=== PATIENT | female | born 1995 | race American Indian/Alaskan Native ===

== ENCOUNTER 2020-07-01 09:02 | Outpatient (CLI) | payer MEDICAID ==
[2020-07-01 09:35] VITALS: BP 119/69
== END 2020-07-01 11:42 | disposition home or self-care (01) ==
LOC: TRG 09:02 → APU 09:03 → TRG 11:42
PROVIDERS: ATTEND Obstetrics & Gynecology
DX: O62.4 Hypertonic, incoordinate, and prolonged uterine contractions (principal); Z3A.40 40 weeks gestation of pregnancy
CPT/HCPCS: 59025

== ENCOUNTER 2020-07-11 09:31 | Inpatient (IN) | payer MEDICAID ==
[2020-07-11] MEDS ORDERED: LIDOCAINE (2%) 20 MG/1 ML VIAL 20 ML MDV INFILTRATI NR (09:50)
[2020-07-11] MEDS ORDERED: TERBUTALINE 1 MG/1 ML INJ SUB-Q PRN (09:50)
[2020-07-11] MEDS ORDERED: ePHEDrine SULFATE 50 MG/1 ML INJ IV PRN ×2 (09:50→15:04)
[2020-07-11] MEDS ORDERED: OXYTOCIN DRIP 30 UNITS/500 ML BAG IV SCH ×4 (10:00→18:00)
[2020-07-11] MEDS ORDERED: fentaNYL 100 MCG/2 ML INJ IV PRN (10:00)
--- NOTE | 2020-07-11 10:10 | History and Physical Report ---
History of Present Illness Date of examination: 07/11/20 Date of admission: 07/11/2020 Chief complaint: Leaking of water since 09:00. History of present illness: 25 year old presents with complaint of contractions since last night and leaking of clear fluid from vagina since 09:00 this morning. Patient received care at [facility] and records are available. LMP 09/02/2019. EDC 07/09/2020. significant for the following: anemia (supplemented with iron), possible history of shoulder dystocia with last delivery (pt. 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 labs are as follows: O+, antibody screen negative, rubella immune, hepatitis B surface antigen negative, RPR nonreactive, HIV negative, varicella immune, HSV 2 positive, pap LSIL, gonorrhea negative, chlamydia negative, trichomonas negative, MSAFP negative, early 1 hour sugar test 140; repeat 1 hour sugar test 122, GBS negative. Past History Past Medical History: other (anemia, HSV 2 positive, LSIL pap smear, vitamin D deficiency) Past Surgical History: no surgical history [employer] History: abnormal PAP smear, herpes (patient denies lesions or prodromal symptoms; taking Valtrex for suppression). denies: chlamydia, gonorrhea, hepatitis B, hepatitis C, HIV, syphilis, trichomonas Family/Genetic History: none Social history: single, full code. denies: smoking, alcohol abuse, prescription drug abuse, IV drug use - Obstetrical History Expected Date of Delivery: 07/09/20 Actual Gestation: 40 Week(s) 2 Day(s) : 2 Para: 1 Hx # Term Pregnancies: 1 Number of Pregnancies: 0 Spontaneous Abortions: 0 Induced : 0 Number of Living Children: 1 Medications and Allergies Allergies Allergy/AdvReac Type Severity Reaction Status Date / Time No Known Allergies Allergy Unverified 07/01/20 09:38 Active Meds: Active Medications Ephedrine Sulfate (Ephedrine Sulfate 50 Mg/1 Ml Inj) 10 mg IV Q2M PRN PRN Reason: Hypotension Fentanyl (Fentanyl 100 Mcg/2 Ml Inj) 100 mcg IV Q2H PRN PRN Reason: Pain,Severe (7-10) LABOR PAIN Oxytocin/Sodium Chloride (Pitocin/Ns 30 Unit/500ml) 30 units in 500 mls @ 2 mls/hr IV TITR [place]; Protocol Lactated Ringer's (Lactated Ringers) 1,000 mls @ 125 mls/hr IV DIRECT [place] Oxytocin/Sodium Chloride (Pitocin/Ns 30 Unit/500ml) 30 units in 500 mls @ 40 mls/hr IV TITR [place]; Protocol Lidocaine (Lidocaine (2%) 20 Mg/1 Ml Vial 20 Ml Mdv) 20 ml INFILTRATI ONCE ONE Stop: 07/11/20 09:51 Mineral Oil (Mineral Oil 30 Ml Oral Liqd) 30 ml PO QHS PRN PRN Reason: Constipation Terbutaline Sulfate (Terbutaline 1 Mg/1 Ml Inj) 0.25 mg SUB-Q ONCE PRN PRN Reason: Hyperstimulation/Hypertonicity Valacyclovir HCl (Valacyclovir 500 Mg Tab) 500 mg PO BID [place] Review of Systems All systems: negative (contractions and leaking of clear fluid from vagina) - Vital Signs Vital signs: Vital Signs Temp Pulse Resp BP 98.5 F 86 16 117/71 07/11/20 09:51 07/11/20 09:51 07/11/20 09:51 07/11/20 09:51 Temp Pulse Resp BP Pulse Ox 98.5 F 86 16 117/71 07/11/20 09:51 07/11/20 09:51 07/11/20 09:51 07/11/20 09:51 - Physical Exam Abdomen: Positive: normal appearance, soft. Negative: distention, tenderness, guarding, rigidity Genitourinary (Female): Positive: normal external genitalia, normal perenium. Negative: perineal/vulvar lesions (no lesions noted on careful exam with bright light upon admission) Vagina: Positive: other (moderate amount of clear fluid) Uterus: Positive: enlarged (S>D (US ordered for EFW)). Negative: tender Anus/Rectum: Positive: normal perianal skin Extremities: Positive: normal. Negative: tenderness, edema - Obstetrical FHR: category 1 Uterine Contraction Monitor Mode: External Cervical Dilatation: 3 Cervical Effacement Percentage: 50 station: -3 Uterine Contraction Pattern: Irregular Uterine Contraction Intensity: Moderate Results All other labs normal. Assessment and Plan A: at 40 weeks, 2 days gestation. Spontaneous rupture of membranes. Early labor. History of shoulder dystocia and hemorrhage with previous delivery. GBS negative. HSV 2 positive; on Valtrex suppression. P: Admit. Continuous EFM. US for EFW. Will consult with re: this patient due to history of shoulder dystocia. Continue Valtrex suppression of HSV 2.
[2020-07-11] MEDS: LACTATED RINGERS 1,000 ML IV SCH ×3 (10:55→14:35)
[2020-07-11 11:05] LABS: Hematocrit 33.2 % (30.3-42.9); Hemoglobin 11.2 gm/dl (10.1-14.3); Mean Corpuscular HGB Conc 34 % (30-34); Mean Corpuscular Volume 90 fl (79-97); Platelet Count 229 K/mm3 (140-440); Red Blood Count 3.68 M/mm3 (3.65-5.03); Red Cell Distribution Width 15.1 % (13.2-15.2)
[2020-07-11] MEDS: valACYclovir 500 MG TAB PO SCH (11:34)
--- NOTE | 2020-07-11 11:39 | Event Note ---
Date: 07/11/20 EFW by US 8 lb. 8 oz. Informed patient of estimated weight which is 1 ounce less than her last baby actually weighed. Discussed with patient risks of shoulder dystocia recurrence with possible history of shoulder dystocia during her last delivery. Advised patient of risks to her and baby if shoulder dystocia occurs (including possible injury to baby and perineal or vaginal lacerations). Patient states she understands and accepts these risks and wants to proceed with attempting vaginal . Consulted with Dr. Alejandre re: EFW and pt. history of shoulder dystocia and she states she is OK with patient attempting vaginal .
--- NOTE | 2020-07-11 13:42 | Ultrasound Report ---
ULTRASOUND OBSTETRIC LIMITED INDICATION / CLINICAL INFORMATION: EFW. Clinical Gestational Age (GA) in weeks, days: 40 weeks 3 days TECHNIQUE: Transabdominal. COMPARISON: None available. FINDINGS: NUMBER: Single PRESENTATION: cephalic AMNIOTIC FLUID VOLUME: normal AMNIOTIC FLUID INDEX (CALIN) in cm (if measured): 10.2 anatomy not evaluated on this limited exam. MEASUREMENTS: - Biparietal Diameter = 9.5 cm = 38 weeks, 6 days - Head Circumference = 35.1 cm = 41 weeks, 0 days - Abdominal Circumference = 35.8 cm = 39 weeks, 5 days - Femur Length = 7.7 cm = 39 weeks, 3 days - Estimated Weight (in grams, if calculated): 3859 g - Heart Rate (beats per minute): 32 ADDITIONAL FINDINGS: None. AVERAGE ULTRASOUND AGE (AUA) in weeks, days = 39 weeks 5 days IMPRESSION: 1. Single intrauterine with AUA of 39 weeks, 5 days 2. No significant sonographic abnormality noted on this limited OB evaluation.. Signer Name: Do Lynch MD Signed: 07/11/2020 1:37 PM Workstation Name: [id number]
--- NOTE | 2020-07-11 14:12 | Anesthesia Consultation ---
Anesthesia Consult and Med Hx Date of service: 07/11/20 - Airway Anesthetic Teeth Evaluation: Good ROM Head & Neck: Adequate Mental/Hyoid Distance: Adequate Mallampati Class: Class II Intubation Access Assessment: Probably Good - Pulmonary Exam CTA: Yes - Cardiac Exam Cardiac Exam: RRR - Pre-Operative Health Status ASA Pre-Surgery Classification: ASA2 Proposed Anesthetic Plan: Epidural - Pulmonary Hx Asthma: No - Cardiovascular System Hx Hypertension: No - Central Nervous System Hx Seizures: No Hx Psychiatric Problems: No - Endocrine Hx Renal Disease: No Hx Hypothyroidism: No Hx Hyperthyroidism: No - Hematic Hx Anemia: No Hx Sickle Cell Disease: No - Other Systems Hx Alcohol Use: No
--- NOTE | 2020-07-11 14:14 | Progress Note ---
Labor Epidural - Labor Epidural Start Time: 13:53 Stop Time: 14:03 Performed by:: ULI LUTZ Procedure: Patient is requesting epidural for labor pain. H&P, and labs reviewed. Procedure explained, questions answered, consent obtained. Patient in sitting position with blood pressure cuff and pulse ox on and working. Timeout performed immediately before start of procedure. Sterile chlorahexadine 0.5% prep/drape. 3 mL 1% lidocaine skin wheal at L[3]-L[4]. 18-gauge [employer] epidural needle advanced to [id number] with saline at [7] cm. 27-gauge spinal needle advanced until clear, free-flowing CSF. Intrathecal dexmedetomidine [5] mcg administered and needle removed. Epidural catheter advanced to [12] cm, negative aspiration for blood and csf, negative test dose 3 ml 1.5% lidocaine with epinephrine. Sterile steri-strips and tegaderm applied, followed by tape reinforcement. Patient tolerated procedure well. [employer] SRNA
[2020-07-11] MEDS ORDERED: NALOXONE 2 MG/2 ML INJ IV PRN (15:04)
[2020-07-11] MEDS ORDERED: fentaNYL-BUPIV 2 MCG/ML-0.125% 200 MCG/100 ML BAG EPIDURAL SCH (16:00)
[2020-07-11] MEDS ORDERED: LACTATED RINGERS 1,000 ML IV SCH (16:15)
[2020-07-11] MEDS ORDERED: ceFAZolin/STERILE WATER 2 GM/20 ML SYRINGE IV ONE (16:35)
[2020-07-11] MEDS ORDERED: KETOROLAC 30 MG/1 ML INJ ONE (16:45)
[2020-07-11] MEDS ORDERED: LIDOCAINE 2%/EPINEPHRINE 1:200,000 VIAL (20 ML) INFILTRATI ONE (16:45)
[2020-07-11] MEDS ORDERED: SODIUM BICARB 8.4% 50 MEQ/50 ML VIAL IV ONE (16:45)
[2020-07-11] MEDS ORDERED: BUPIVACAINE/PF (0.5%) 5 MG/1 ML 30 ML VIAL INFILTRATI ONE (16:45)
--- NOTE | 2020-07-11 16:46 | Event Note ---
Date: 07/11/20 Prolonged deceleration of FHR noted at 3:51 PM. Patient positioned in left lateral, right lateral, then hands and knees position. FSE applied. Oxygen applied per face mask at 10 LPM. Cervix 4/60/-3. Pitocin stopped at onset of deceleration. Terbutaline given. Called Dr. Alejandre at 3:54 PM re: prolonged heart rate deceleration. Dr. Alejandre states she is on her way in to do section. Team notified and orders put in.
[2020-07-11] MEDS ORDERED: SODIUM CHLORIDE 0.9% IRR 1,500 ML BOTTLE IR ONE (16:50)
[2020-07-11] MEDS ORDERED: WATER FOR IRRIG STERILE 1,500 ML BOTTLE IR ONE (16:50)
[2020-07-11] MEDS ORDERED: OXYTOCIN 10 UNIT/1 ML INJ ONE (16:57)
[2020-07-11] MEDS ORDERED: METOCLOPRAMIDE 10 MG/2 ML INJ IV ONE (17:00)
[2020-07-11] MEDS ORDERED: PHENYLEPHRINE/NS 1,000 MCG/10 ML SYRINGE (OR USE) IV ONE (17:00)
[2020-07-11] MEDS ORDERED: FAMOTIDINE 20 MG/2 ML INJ IV ONE (17:00)
[2020-07-11] MEDS ORDERED: ceFAZolin/Water 2 GM/20 ML 2 GM/20 ML SYRINGE IV NR (17:00)
[2020-07-11] MEDS ORDERED: BICITRA ORAL LIQD 30ML PO ONE (17:00)
[2020-07-11] MEDS ORDERED: miSOPROStol 200 MCG TAB PR ONE (17:13)
[2020-07-11] MEDS ORDERED: METHYLERGONOVINE MALEATE 0.2 MG/ML VIAL IM ONE ×3 (17:15→23:29)
[2020-07-11] MEDS ORDERED: CARBOPROST TROMETHAMINE 250 MCG/1 ML INJ IM ONE (17:15)
[2020-07-11] MEDS ORDERED: MAGNESIUM HYDROXIDE (MOM) ORAL LIQD UDC PO PRN (17:57)
[2020-07-11] MEDS ORDERED: LANOLIN/ZINC/DIMETHICONE (LANSINOH) 7 GM TP PRN (17:57)
[2020-07-11] MEDS ORDERED: MORPHINE 4 MG/1 ML INJ IV PRN (17:57)
[2020-07-11] MEDS ORDERED: PROMETHAZINE 25 MG RECT SUPP PR PRN (17:57)
[2020-07-11] MEDS ORDERED: IBUPROFEN 800 MG TAB PO PRN (17:57)
[2020-07-11] MEDS ORDERED: KETOROLAC 30 MG/1 ML INJ IV PRN (17:57)
[2020-07-11] MEDS ORDERED: NALOXONE 0.4 MG/1 ML INJ IV PRN (17:57)
[2020-07-11] MEDS ORDERED: WITCH HAZEL/ GLYCERIN PAD TP PRN (17:57)
[2020-07-11] MEDS ORDERED: ONDANSETRON 4 MG/2 ML INJ IV PRN (17:57)
--- NOTE | 2020-07-11 18:08 | Procedure Note ---
OB Delivery Note - Delivery Date of Delivery: 07/11/20 Surgeon: STEVEN MORENO Estimated blood loss: 500cc - Section Preop diagnosis: nonreassuring FHR tracing Postop diagnosis: same (suspected early chorioamnionitis) section procedure: primary low transverse Disposition: PACU Complications: none Narrative: Preop diagnosis: IUP at 40.2 weeks, intolerance to labor with non- reassuring heart tones Postop diagnosis: Same,suspected early chorioamnionitis Procedure: Primary low transverse section via Pfannenstiel incision Surgeon: Dr. Steven Moreno Anesthesia spinal Complications none EBL 500ml IV fluids 1000mL Urine output 200mL, clear Drains Wang to gravity Findings: Viable male with weight and pending, normal uterus tubes and ovaries bilaterally Procedure: Patient was consented in room 2008, taken to the operating room and then placed in the dorsal supine position with a leftward tilt. The abdomen was prepped and draped in a sterile fashion, and a timeout was verified. Adequate anesthesia was confirmed prior to the skin incision. A Pfannenstiel skin incision was made with a scalpel taken down to the underlying structures and the fascia was incised in the midline. The incision was extended laterally with curved Cole scissors, the superior and inferior aspects of the fascial incisions were grasped with Morgan clamps and the rectus muscles dissected sharply. The abdomen was entered bluntly in the midline carried down inferiorly with good visualization of the bladder. The bladder blade was inserted, the uterine incision was made sharply with a scalpel. The inferior and superior aspect of the uterine incisions were extended bluntly, the baby's head was delivered atraumatically. The remainder of the delivery was uneventful, a loose nuchal cord was reduced during delivery. The cord was clamped and cut and baby handed to waiting NICU team. Cord blood obtained. An intact placenta with three-vessel cord delivered manually. The uterus was then cleared of all clots and debris and the uterus exteriorized. The uterine incision was closed with 2 layers of 0 chromic with excellent hemostasis. The abdomen was then irrigated with warm normal saline and the uterus placed back into the abdomen atraumatically. A second look at the uterine incision assured hemostasis. The peritoneum was closed with 3-0 Vicryl, the rectus muscles approximated with 3-0 Vicryl, and the fascia closed with 0 Vicryl in the usual fashion. The subcuticular structures were closed with interrupted sutures of 3-0 Vicryl and the skin closed with 4-0 Monocryl. A pressure dressing was applied. All sponge needle and instrument counts were correct x2. There were no complications. Mom and baby stable to PACU. EBL 500ml Ching Moreno MD
[2020-07-11] MEDS ORDERED: MINERAL OIL 30 ML ORAL LIQD PO PRN (22:00)
[2020-07-11] MEDS ORDERED: SODIUM CHLORIDE 0.9% 500 ML 500 ML IV ONE (23:27)
--- NOTE | 2020-07-11 23:48 | Event Note ---
Date: 07/11/20 Patient noted to have PP hemorrhage. IV fluids wide open, two large bore IV's placed and functional. At bedside, fundus firm with lower uterine segment atony noted. ~500ml blood and clot expressed from lower segment and endocervix. BP 90/60's P80's AAO throughout Methergine 0.2mg given IMx2 doses Morphone 2gm IV given x1 dose Total blood loss in OR: 350ml, total PP blood loss to date 500ml: total blood loss since delivery 850ml. CBC sent STAT two units PRBC's on hold NO active bleeding upon leaving the room. Fundus firm, hemodynamically stable. Will continue to monitor Ching Alejandre MD
[2020-07-11 23:59] LABS: Hematocrit 25.6 % (30.3-42.9); Hemoglobin 8.7 gm/dl (10.1-14.3); Mean Corpuscular HGB Conc 34 % (30-34); Mean Corpuscular Volume 89 fl (79-97); Platelet Count 241 K/mm3 (140-440); Red Blood Count 2.88 M/mm3 (3.65-5.03); Red Cell Distribution Width 14.5 % (13.2-15.2)
[2020-07-12] MEDS ORDERED: SODIUM CHLORIDE 0.9% 500 ML 500 ML ONE (02:04)
[2020-07-12] MEDS: HYDROcodone/ACETAMINOPHEN 5-325 MG TAB PO PRN ×3 (07:52→23:13)
[2020-07-12 10:06] LABS: Hematocrit 32.3 % (30.3-42.9); Hemoglobin 10.9 gm/dl (10.1-14.3)
[2020-07-12] MEDS: valACYclovir 500 MG TAB PO SCH ×2 (10:29→22:06)
--- NOTE | 2020-07-12 11:05 | Progress Note ---
Assessment and Plan A: /postop day 1 S/P primary LTCS. S/P hemorrhage; S/P blood transfusion. Anemia. P: Supplement with oral iron. Encouraged ambulation with assistance. Advance diet as tolerated. Subjective - Subjective Date of service: 07/12/20 Principal diagnosis: day 1 S/P primary LTCS Interval history: Received 2 units of blood last night. Patient states she is feeling better. Denies dizziness or lightheadedness. Reports small amount of lochia now. Wang catheter was just removed. + flatus. Ambulating without difficulty. No nausea or vomiting. Patient reports: appetite normal, voiding normally, pain well controlled, flatus, ambulating normally, no dizzy ambulation, no nauseated : doing well Objective - Vital Signs Latest vital signs: Vital Signs Temp Pulse Resp BP BP Pulse Ox 07/12/20 07:48 98.2 F 71 20 110/69 100 07/12/20 05:45 98.8 F 77 20 115/73 98 07/12/20 05:15 97.8 F 82 20 119/77 97 07/12/20 04:45 98.0 F 84 20 120/61 07/12/20 04:30 98.8 F 84 20 115/57 97 07/12/20 03:17 98.5 F 82 20 120/66 07/12/20 03:16 81 120/66 96 07/12/20 03:15 98.8 F 07/12/20 02:47 98.1 F 88 20 110/71 07/12/20 02:45 98.9 F 89 115/71 96 07/12/20 02:17 98.7 F 70 20 125/70 07/12/20 02:02 98.9 F 82 20 117/63 07/12/20 00:43 98.4 F 78 20 113/69 99 07/11/20 21:15 99.2 F 79 21 114/61 96 07/11/20 20:36 135 H 81 L 07/11/20 20:32 90 115/55 07/11/20 20:31 89 98 07/11/20 20:27 80 125/65 07/11/20 20:26 87 98 07/11/20 20:22 80 119/58 07/11/20 20:21 76 97 07/11/20 20:17 76 117/58 07/11/20 20:16 76 97 07/11/20 20:12 75 120/61 07/11/20 20:11 77 97 07/11/20 20:07 79 120/59 07/11/20 20:06 78 95 07/11/20 20:02 78 126/64 07/11/20 20:01 78 98 07/11/20 19:57 80 130/61 07/11/20 19:56 86 97 07/11/20 19:52 90 121/62 07/11/20 19:51 86 97 07/11/20 19:46 82 127/67 96 07/11/20 19:42 85 118/63 07/11/20 19:41 89 95 07/11/20 19:37 88 123/64 07/11/20 19:36 91 H 96 07/11/20 19:32 90 122/61 07/11/20 19:31 97 H 96 07/11/20 19:27 84 123/62 07/11/20 19:26 86 97 07/11/20 19:25 98.4 F 07/11/20 19:21 89 127/62 97 07/11/20 19:17 83 116/61 07/11/20 19:16 82 97 07/11/20 19:12 83 120/65 07/11/20 19:11 83 98 07/11/20 19:07 72 116/62 07/11/20 19:06 75 97 07/11/20 19:04 99.1 F 07/11/20 19:02 86 126/66 07/11/20 19:01 90 95 07/11/20 18:56 89 131/66 97 07/11/20 18:51 82 122/63 97 07/11/20 18:46 85 117/62 97 07/11/20 18:41 90 118/63 96 07/11/20 18:36 96 H 118/61 97 07/11/20 18:35 98.4 F 20 97 07/11/20 18:32 85 114/61 07/11/20 18:31 88 98 07/11/20 18:27 93 H 118/63 07/11/20 18:26 83 99 07/11/20 18:22 74 116/63 07/11/20 18:21 75 97 07/11/20 18:20 18 97 07/11/20 18:17 88 124/64 07/11/20 18:16 85 97 07/11/20 18:12 76 118/61 07/11/20 18:11 76 98 07/11/20 18:07 82 124/66 07/11/20 18:06 82 98 07/11/20 18:05 20 98 07/11/20 18:02 85 123/64 07/11/20 18:01 83 98 07/11/20 18:00 85 18 123/64 07/11/20 17:56 82 125/64 97 07/11/20 17:55 64 18 125/64 07/11/20 17:52 83 119/65 07/11/20 17:51 82 98 07/11/20 17:50 98.0 F 22 07/11/20 16:21 82 103/59 07/11/20 16:16 89 114/58 07/11/20 16:11 110 H 115/64 07/11/20 16:10 90 117/56 07/11/20 16:02 113 H 126/60 98 07/11/20 15:58 98.1 F 07/11/20 15:57 112 H 99 07/11/20 15:52 99 H 105/60 100 07/11/20 15:47 85 113/59 100 07/11/20 15:43 85 108/57 07/11/20 15:42 96 H 100 07/11/20 15:41 88 113/61 07/11/20 15:37 83 106/59 100 07/11/20 15:32 88 100 07/11/20 15:31 86 104/55 07/11/20 15:27 87 100 07/11/20 15:26 86 107/58 07/11/20 15:22 80 100 07/11/20 15:21 80 111/58 02 15:17 80 100 07/11/20 15:16 80 105/59 07/11/20 15:12 79 100 07/11/20 15:11 72 101/57 07/11/20 15:07 74 98 06 15:05 80 92/52 07/11/20 15:02 86 98 07/11/20 14:57 82 100 07/11/20 14:52 81 99 02/06/21 14:50 84 100/51 07/11/20 14:47 92 H 100 07/11/20 14:42 79 100 07/11/20 14:37 82 99 07/11/20 14:34 94 H 109/56 07/11/20 14:32 89 99 07/11/20 14:30 83 111/57 07/11/20 14:28 78 112/59 07/11/20 14:27 86 98 07/11/20 14:25 86 105/59 07/11/20 14:22 93 H 109/56 98 07/11/20 14:19 85 110/58 07/11/20 14:17 82 99 07/11/20 14:16 88 120/63 07/11/20 14:13 82 118/65 07/11/20 14:12 91 H 99 07/11/20 14:07 93 H 137/65 99 07/11/20 14:04 100 H 124/65 07/11/20 14:02 100 H 100 07/11/20 13:57 93 H 99 07/11/20 13:52 88 124/67 99 07/11/20 13:47 91 H 99 07/11/20 13:42 101 H 97 07/11/20 13:37 90 99 07/11/20 13:32 80 99 07/11/20 13:27 93 H 99 07/11/20 13:22 81 98 07/11/20 13:17 79 98 07/11/20 13:12 76 98 07/11/20 13:07 100 H 99 07/11/20 13:02 76 98 07/11/20 12:57 82 97 07/11/20 12:52 95 H 97 07/11/20 12:47 77 97 07/11/20 12:42 92 H 98 07/11/20 12:37 102 H 97 07/11/20 12:32 72 98 07/11/20 12:27 80 97 07/11/20 12:22 68 99 07/11/20 12:17 72 97 07/11/20 12:12 76 98 07/11/20 12:07 80 99 07/11/20 12:02 89 99 07/11/20 11:57 88 97 07/11/20 11:52 84 98 07/11/20 11:47 83 98 02/06/21 11:42 82 98 07/11/20 11:37 85 99 07/11/20 11:34 18 07/11/20 11:32 82 100 07/11/20 11:27 87 99 07/11/20 11:22 91 H 99 07/11/20 11:17 81 99 07/11/20 11:12 88 98 07/11/20 11:07 98 H 99 07/11/20 11:02 92 H 98 Intake and Output 07/11/20 07/12/20 07/12/20 23:59 07:59 15:59 Intake Total 1999 860 120 Output Total 1400 2100 575 Balance 627 -1148 -018 Intake: IV 2000 Oral 360 120 Blood Product 500 Leukoreduced Red Blood 250 Cells Unit [id number] Leukoreduced Red Blood 250 Cells Unit [id number] Output: Urine 1400 2100 575 Indwelling Catheter 550 2100 575 Other: Total, Intake Amount 120 120 Total, Output Amount 550 1200 575 Estimated Blood Loss 500 - Exam Cardiovascular: Present: Regular rate Lungs: Present: Clear to auscultation Abdomen: Present: normal appearance, soft, normal bowel sounds. Absent: distention, tenderness, guarding, rigidity Uterus: Present: normal, firm, fundal height below umbilicus. Absent: bogginess, tenderness Extremities: Present: normal. Absent: tenderness, edema Incision: Present: normal, dry, dressed - Labs Labs: Abnormal lab results 07/11/20 07/11/20 07/11/20 Range/Units 10:32 10:32 23:28 WBC 11.8 H 16.1 H (4.5-11.0) K/mm3 RBC 2.88 L (3.65-5.03) M/mm3 Hgb 8.7 L (10.1-14.3) gm/dl Hct 25.6 L D (30.3-42.9) % Crossmatch See Detail
[2020-07-12] MEDS: IBUPROFEN 600 MG TAB PO PRN (11:20)
[2020-07-12] MEDS: FERROUS SULFATE 325 MG TAB PO SCH (11:20)
[2020-07-12] MEDS: SIMETHICONE 80 MG CHEW TAB PO PRN ×2 (11:21→19:57)
--- NOTE | 2020-07-12 12:03 | Post Anesthesia Evaluation ---
- Post Anesthesia Evaluation Patient Participated: Yes Airway Patent: Yes Stable Respiratory Function: Yes Nausea/Vomiting: No Temp > 96.8F: Yes Pain Manageable: Yes Adequeate Hydration: Yes Anesthesia Complications: No Block Receding Appropriately: Yes
[2020-07-13] MEDS: HYDROcodone/ACETAMINOPHEN 5-325 MG TAB PO PRN (05:45)
[2020-07-13] MEDS: IBUPROFEN 600 MG TAB PO PRN (10:11)
[2020-07-13] MEDS: valACYclovir 500 MG TAB PO SCH ×2 (10:12→10:13)
[2020-07-13] MEDS: FERROUS SULFATE 325 MG TAB PO SCH (10:12)
--- NOTE | 2020-07-13 12:02 | Progress Note ---
Assessment and Plan A:S/P primary c/s S/P symptomatic anemia (2 transfusions) P: Continue routine pp care Encourage ambulation Continue Fe as prescribed D/C home per pt request if MD approves Subjective - Subjective Date of service: 07/13/20 Principal diagnosis: day 1 S/P primary LTCS Patient reports: appetite normal, voiding normally, pain well controlled, flatus, ambulating normally [place]: doing well, bottle feeding Objective - Vital Signs Latest vital signs: Vital Signs Temp Pulse Resp BP Pulse Ox 07/13/20 08:12 97.9 F 99 H 18 109/53 99 07/13/20 06:36 18 07/13/20 05:45 18 07/13/20 01:16 98.1 F 90 18 101/52 97 07/13/20 00:13 18 07/12/20 23:13 20 07/12/20 19:57 98.5 F 88 18 99 07/12/20 19:54 114/61 07/12/20 16:30 98.2 F 81 20 106/60 99 07/12/20 12:00 97.9 F 75 20 104/60 98 Intake and Output 07/12/20 07/13/20 07/13/20 22:59 06:59 14:59 Intake Total 320 240 360 Output Total 150 300 Balance 170 -60 360 Intake: Oral 200 240 Intake, Free Water 120 240 120 Output: Urine 150 300 Indwelling Catheter 150 Void 300 Other: Total, Intake Amount 200 240 Total, Output Amount 150 300 # Voids Void 1 1 1 - Exam Breasts: Present: normal Abdomen: Present: normal appearance, soft, normal bowel sounds Vulva: both: normal Uterus: Present: normal, firm, fundal height below umbilicus Extremities: Present: normal Incision: Present: normal, dry, intact
--- NOTE | 2020-07-13 14:18 | Discharge Summary ---
Providers - Providers Date of Admission: 07/11/20 09:50 Date of discharge: 07/13/20 Attending physician: STEVEN MORENO MD Primary care physician: STEVEN MORENO MD Hospitalization Reason for admission: active labor Delivery: Procedure: primary low transverse Episiotomy: none Laceration: none Incision: normal, dry, intact Other procedures: none complications: transfusion Discharge diagnosis: IUP at term delivered baby: male Hospital course: Pt was admitted to [facility] r/t and ended up with a primary LTCS r/t distress. She received a blood transfusion pp for symptomatic anemia and went home in stable condition. See H&P, delivery summary,and pp notes Condition at discharge: Stable Disposition: DC-01 TO HOME OR SELFCARE Plan - Discharge Medications Prescriptions: Ibuprofen [Motrin] 600 mg PO Q8H PRN #60 tablet PRN Reason: Pain oxyCODONE /ACETAMINOPHEN [Percocet 5/325] 1 tab PO Q6HR PRN #20 tablet PRN Reason: Pain - Provider Discharge Summary Activity: routine, no sex for 6 weeks, no heavy lifting 4 weeks, no strenuous exercise Diet: routine Instructions: routine Additional instructions: [] Smoking cessation referral if applicable(refer to patient education folder for contact #) [] Refer to [facility] Booklet Call your doctor immediately for: * Fever > 100.5 * Heavy vaginal bleeding ( >1 pad per hour) * Severe persistent headache * Shortness of breath * Reddened, hot, painful area to leg or breast * Drainage or odor from incision. * Keep incision clean and dry at all times and follow doctor's instructions regarding bathing/showering - Follow up plan Follow up: STEVEN MORENO MD [Primary Care Provider] - 14 Days
[2020-07-13 17:25] VITALS: BP 109/64
== END 2020-07-13 18:05 | disposition home or self-care (01) | DRG 765 ==
LOC: TRG 09:31 → APU 09:32 → LD 09:50 → TRG 09:50 → OB 21:28
PROVIDERS: ADMIT Obstetrics & Gynecology; ATTEND Obstetrics & Gynecology
PROC: 10D00Z1 Extraction of Products of Conception, Low, Open Approach (ICD-10-PCS; principal; 2020-07-11)
PROC: 30233N1 Transfusion of Nonautologous Red Blood Cells into Peripheral Vein, Percutaneous Approach (ICD-10-PCS; 2020-07-11)
PROC: 10H07YZ Insertion of Other Device into Products of Conception, Via Natural or Artificial Opening (ICD-10-PCS; 2020-07-11)
DX: O76 Abnormality in fetal heart rate and rhythm complicating labor and delivery (principal); O72.1 Other immediate postpartum hemorrhage; O98.32 Other infections with a predominantly sexual mode of transmission complicating childbirth; A60.09 Herpesviral infection of other urogenital tract; O74.9 Complication of anesthesia during labor and delivery, unspecified; O66.9 Obstructed labor, unspecified; O69.81X0 Labor and delivery complicated by cord around neck, without compression, not applicable or unspecified; Z3A.40 40 weeks gestation of pregnancy; Z37.0 Single live birth; Z20.822 Contact with and (suspected) exposure to COVID-19
CPT/HCPCS: 36415; 76815; 76816; 83036; 85014; 85018; 85027; 86592; 86850; 86900; 86901; 86920; 88307; G0378; J0690; J1885; J2210; J2270; J2370; J2590; J2765; J3010; J3105; J7040; J7120; P9016; U0003